=== PATIENT | female | born 1970 | race Caucasian/White ===

== ENCOUNTER → 2021-01-20 | Outpatient (CLI) | payer BC ==
[~2021-01-20] MED LIST: ATENOLOL50 MG PO; HYDROCHLOROTHIA25 MG PO; LISINOPRIL10 MG PO; NEURONTIN300 MG PO
== END ==
LOC: RAD 16:23
PROVIDERS: ATTEND Family Medicine
DX: M54.2 Cervicalgia (principal); G89.29 Other chronic pain; M50.33 Other cervical disc degeneration, cervicothoracic region
CPT/HCPCS: 72040

== ENCOUNTER → 2021-02-09 | Outpatient (CLI) | payer BC | LOC: MRI 08:41 | PROVIDERS: ATTEND Family Medicine | DX: M54.2 Cervicalgia (principal); G89.29 Other chronic pain | CPT/HCPCS: 72141 ==

== ENCOUNTER → 2021-02-22 | Outpatient (CLI) | payer BC ==
[~2021-02-22] MED LIST changes: +GADOBENATE DIMEGLUMINE 1 ML IV ONE
== END ==
LOC: MRI 12:34
PROVIDERS: ATTEND Otolaryngology
DX: H90.42 Sensorineural hearing loss, unilateral, left ear, with unrestricted hearing on the contralateral side (principal); H93.13 Tinnitus, bilateral
CPT/HCPCS: 70553